=== PATIENT | male | born 1985 | race African-American/Black ===

== ENCOUNTER 2018-04-06 19:24 | Emergency (ER) | payer OTHER ==
[~2018-04-06] VITALS: Ht 190.5 cm; Wt 108.4 kg
[2018-04-06 20:00] LABS: ABSOLUTE BASOPHILS 0.1 thou/uL (0.0-0.2); ABSOLUTE EOSINOPHILS 0.5 thou/uL (0.0-0.7); ABSOLUTE LYMPHOCYTES 2.2 thou/uL (0.8-5.3); ABSOLUTE MONOCYTES 0.7 thou/uL (0.0-1.2); ABSOLUTE NEUTROPHILS 2.8 thou/uL (1.6-8.1); BASOPHILS 0.9 %; EOSINOPHILS 8.7 %; HEMATOCRIT 46.4 % (42.0-52.0); HEMOGLOBIN 15.3 gm/dL (14.0-18.0); LYMPHOCYTES 34.4 %; MCH 28.3 pg (26.0-34.0); MCHC 32.9 g/dL (28.0-37.0); MCV 86.1 fL (80.0-100.0); MPV 8.3 fl. (7.2-11.1); NUCLEATED RBCS 0 /100WBC; PLATELET COUNT* 239 thou/uL (150-400); RBC 5.39 mil/uL (4.50-6.00); RDW-CV 13.5 % (10.5-14.5); WBC 6.3 thou/uL (4.0-11.0)
[2018-04-06 20:11] LABS: CALCIUM 8.6 mg/dL (8.5-10.1); CREATININE 1.4 mg/dL (0.6-1.3); POTASSIUM 4.1 mmol/L (3.5-5.1)
[2018-04-06 20:17] LABS: ALBUMIN 3.3 g/dL (3.4-5.0); TOTAL BILIRUBIN 0.3 mg/dL (<0.1-1.0); TOTAL PROTEIN 6.5 g/dL (6.4-8.2)
[2018-04-06] MEDS ORDERED: COLCHICINE0.6 MG PO (20:42)
[2018-04-06 21:39] LABS: ESR (SEDRATE) 1 mm/hr (0-15)
[2018-04-06 21:57] VITALS: BP 141/75
== END 2018-04-06 22:00 | disposition home or self-care (01) ==
LOC: M.ERS 19:24
PROVIDERS: Nurse Practitioner Family
DX: M10.9 Gout, unspecified (principal); F17.210 Nicotine dependence, cigarettes, uncomplicated

== ENCOUNTER 2019-07-14 22:29 | Emergency (ER) | payer OTHER ==
[~2019-07-14] VITALS: Ht 190.5 cm; Wt 113.4 kg
[~2019-07-14 22:29] MED LIST: COLCHICINE0.6 MG PO
[2019-07-14 23:30] VITALS: BP 156/92
== END 2019-07-14 23:32 | disposition home or self-care (01) ==
LOC: M.ERS 22:29
DX: S61.112A Laceration without foreign body of left thumb with damage to nail, initial encounter (principal); M10.9 Gout, unspecified; W26.8XXA Contact with other sharp object(s), not elsewhere classified, initial encounter; Y92.89 Other specified places as the place of occurrence of the external cause; Y93.89 Activity, other specified; Y99.8 Other external cause status